=== PATIENT | male | born 1980 | race Caucasian/White ===

== ENCOUNTER 2020-09-08 13:19 | Emergency (ER) | payer MEDICAID ==
[~2020-09-08] VITALS: Ht 172.7 cm; Wt 90.7 kg
[2020-09-08 13:20] VITALS: BP_SYST 147
--- NOTE | 2020-09-08 13:20 | NUR ---
BROUGHT INTO TRIAGE TENT AND TRIAGED. AWAITING ER BED.
--- NOTE | 2020-09-08 13:30 | NUR ---
Pt came to ER for hypertension, currently in tent resting awaiting MD assessment comfortable at this time.
--- NOTE | 2020-09-08 13:45 | NUR ---
ER at bedside examining patient.
--- NOTE | 2020-09-08 13:59 | NUR ---
Patient given written and verbal discharge instructions and verbalizes understanding. ER MD discussed with patient the results and treatment provided. Patient in stable condition. ID arm band removed. Rx of Lisinopril given. Patient educated on pain management and to follow up with PMD. Pain Scale 0/10. Opportunity for questions provided and answered. Medication side effect fact sheet provided.
[2020-09-08] MEDS ORDERED: LISINOPRIL 10 MG TABLET (PRINIVIL) PO ONE (14:00)
[2020-09-08 14:14] VITALS: BP_SYST 160
--- NOTE | 2020-09-08 14:14 | NUR ---
Note undone in EDM - 09/08/20 at 1415 by SDMORGAN Patient given written and verbal discharge instructions and verbalizes understanding. ER discussed with patient the results and treatment provided. Patient in stable condition. ID arm band removed. Rx of lisinopril given. Patient educated on pain management and to follow up with PMD. Pain Scale 0/10. Opportunity for questions provided and answered. Medication side effect fact sheet provided.
== END 2020-09-08 13:59 | disposition home or self-care (01) ==
LOC: SED 13:19
DX: I10 Essential (primary) hypertension (principal); F17.200 Nicotine dependence, unspecified, uncomplicated; Z71.6 Tobacco abuse counseling
CPT/HCPCS: 99283